=== PATIENT | female | born 1950 | race Caucasian/White ===

== ENCOUNTER 2020-10-14 13:23 | Inpatient (IN) ==
[2020-10-14] MEDS ORDERED: MORPHINE 4 MG/1 ML VIAL IV ONE (15:12)
[2020-10-14] MEDS ORDERED: ONDANSETRON 4 MG/2 ML VIAL IV STA (15:12)
[2020-10-14 15:22] LABS: Basophils % 0.5 % (0.0-0.8); Eosinophils # 0.2 10*3/uL (0.0-0.87); Hematocrit 41.9 VOL% (35.7-47.0); Hemoglobin 13.4 GM/DL (12.0-16.0); Immature Granulocytes % 0.2 %; Immature Granulocytes Absolute 0.02 #; Lymphocytes # 1.3 10*3/uL (1.4-4.0); Lymphocytes % 15.2 % (21.3-54.2); Mean Corpuscular Volume 91.9 FL (87-102); Monocytes % 9.6 % (1.7-12.7); Neutrophils % 72.5 % (38.7-73.9); Platelet Count 201 T/CUMM (130-400); Red Blood Count 4.56 MC/CUMM (3.8-5.5); Red Cell Distribution Width 13.5 % (9.3-17.3); White Blood Count 8.6 T/CUMM (4-12)
[2020-10-14 15:31] LABS: Calcium 9.2 MG/DL (8.5-10.1); Osmolality,Calculated 275.7 MOS/KG (273-304); Potassium 3.5 MMOL/L (3.5-5.1)
[2020-10-14] MEDS ORDERED: DEXTROSE 50% 25 GM/50 ML VIAL IV PRN (15:39)
[2020-10-14] MEDS ORDERED: GLUCAGON 1 MG VIAL IM PRN (15:39)
[2020-10-14] MEDS ORDERED: ONDANSETRON 4 MG/2 ML VIAL IV PRN (15:39)
[2020-10-14] MEDS ORDERED: HYDROmorphone 2 MG/1 ML VIAL IV PRN (15:41)
[2020-10-14] MEDS ORDERED: POTASSIUM CHLORIDE 20 MEQ TABLET PO ONE (16:18)
[2020-10-14] MEDS: DEXTROSE 5% NACL 0.45% 1,000 ML IV SCH (16:43)
[2020-10-14] MEDS ORDERED: INFLUENZA VIRUS VACCINE 0.5 ML SYRINGE IM ONE (16:58)
[2020-10-14] MEDS ORDERED: PNEUMOCOCCAL VACCINE (13 VALENT) 0.5 ML SYRINGE IM ONE (16:58)
[2020-10-14] MEDS: DOCUSATE SODIUM 100 MG CAPSULE PO SCH (21:08)
[2020-10-15 05:59] LABS: Basophils % 0.6 % (0.0-0.8); Eosinophils # 0.3 10*3/uL (0.0-0.87); Eosinophils % 4.4 % (0.00-10.9); Hematocrit 38.6 VOL% (35.7-47.0); Hemoglobin 12.4 GM/DL (12.0-16.0); Immature Granulocytes % 0.5 %; Immature Granulocytes Absolute 0.03 #; Lymphocytes # 1.2 10*3/uL (1.4-4.0); Lymphocytes % 19.4 % (21.3-54.2); Mean Corpuscular HGB Conc 32.1 GM/DL (32-36); Mean Corpuscular Volume 91.9 FL (87-102); Monocytes % 9.9 % (1.7-12.7); Neutrophils % 65.2 % (38.7-73.9); Platelet Count 184 T/CUMM (130-400); Red Cell Distribution Width 13.6 % (9.3-17.3); White Blood Count 6.2 T/CUMM (4-12)
[2020-10-15 06:18] LABS: Calcium 8.5 MG/DL (8.5-10.1); Osmolality,Calculated 280.4 MOS/KG (273-304); Potassium 3.6 MMOL/L (3.5-5.1)
[2020-10-15] MEDS: DEXTROSE 5% NACL 0.45% 1,000 ML IV SCH ×2 (06:31→19:13)
[2020-10-15] MEDS: BUDESONIDE 3 MG CAPSULE PO SCH (09:00)
[2020-10-15] MEDS: PANTOPRAZOLE 40 MG TABLET PO SCH (09:00)
[2020-10-15] MEDS: DOCUSATE SODIUM 100 MG CAPSULE PO SCH ×2 (09:00→21:42)
[2020-10-15] MEDS ORDERED: SODIUM CHLORIDE 0.9% 100 ML IV ONE (16:10)
[2020-10-15] MEDS ORDERED: propofoL 200 MG/20 ML VIAL IV ONE (16:10)
[2020-10-15] MEDS ORDERED: LIDOCAINE 2% 5 ML VIAL ONE (16:10)
[2020-10-15] MEDS ORDERED: BUPIVACAINE SPINAL 0.75% 2 ML AMP SPINAL ONE (16:10)
[2020-10-15] MEDS ORDERED: fentaNYL 100 MCG/2 ML VIAL ONE (16:10)
[2020-10-15] MEDS ORDERED: MIDAZOLAM 2 MG/2 ML VIAL ONE (16:10)
[2020-10-15] MEDS ORDERED: KETAMINE 500 MG/10 ML VIAL ONE (16:14)
[2020-10-15] MEDS ORDERED: MEPERIDINE 25 MG/1 ML VIAL IV PRN (16:45)
[2020-10-15] MEDS ORDERED: PROMETHAZINE INJ 25 MG in SODIUM CHLORIDE 0.9% 50 ML IV PRN (16:45)
[2020-10-15] MEDS ORDERED: diphenhydrAMINE 50 MG/1 ML VIAL IV PRN (16:45)
[2020-10-15] MEDS ORDERED: HYDROmorphone 2 MG/1 ML VIAL IV PRN (16:45)
[2020-10-15] MEDS ORDERED: ONDANSETRON 4 MG/2 ML VIAL IV PRN (16:45)
[2020-10-15] MEDS ORDERED: DEXMEDETOMIDINE 200 MCG/2 ML VIAL ONE (18:42)
[2020-10-15] MEDS ORDERED: CLINDAMYCIN INJ 50 ML IV ONE (18:59)
[2020-10-15] MEDS ORDERED: LACTATED RINGERS 1,000 ML IV ONE (20:11)
[2020-10-15] MEDS ORDERED: PHENYLEPHRINE 1 MG/10 ML SYRINGE IV ONE (20:17)
[2020-10-15] MEDS ORDERED: ROPIVACAINE 0.5% 30 ML VIAL ONE (20:56)
[2020-10-15] MEDS ORDERED: DEXAMETHASONE 4 MG/1 ML VIAL ONE (20:56)
[2020-10-15] MEDS: CLINDAMYCIN INJ 900 MG in PREMIX 1 EACH IV SCH (21:42)
[2020-10-16] MEDS: CLINDAMYCIN INJ 900 MG in PREMIX 1 EACH IV SCH ×3 (04:47→20:32)
[2020-10-16 05:51] LABS: Basophils % 0.3 % (0.0-0.8); Eosinophils % 0.3 % (0.00-10.9); Hematocrit 38.8 VOL% (35.7-47.0); Hemoglobin 12.6 GM/DL (12.0-16.0); Immature Granulocytes % 0.4 %; Immature Granulocytes Absolute 0.03 #; Lymphocytes # 0.6 10*3/uL (1.4-4.0); Lymphocytes % 8.7 % (21.3-54.2); Mean Corpuscular HGB Conc 32.5 GM/DL (32-36); Mean Corpuscular Volume 92.4 FL (87-102); Monocytes % 6.3 % (1.7-12.7); Platelet Count 202 T/CUMM (130-400); Red Cell Distribution Width 13.2 % (9.3-17.3)
[2020-10-16 06:04] LABS: Calcium 8.5 MG/DL (8.5-10.1); Osmolality,Calculated 275.8 MOS/KG (273-304); Potassium 3.9 MMOL/L (3.5-5.1)
[2020-10-16] MEDS: BUDESONIDE 3 MG CAPSULE PO SCH (09:27)
[2020-10-16] MEDS: PANTOPRAZOLE 40 MG TABLET PO SCH (09:27)
[2020-10-16] MEDS: DOCUSATE SODIUM 100 MG CAPSULE PO SCH ×2 (09:27→20:32)
[2020-10-16] MEDS: ENOXAPARIN 40 MG/0.4 ML SYRINGE SUBCUT SCH (09:27)
[2020-10-16] MEDS: DEXTROSE 5% NACL 0.45% 1,000 ML IV SCH ×2 (12:57→20:49)
[2020-10-16] MEDS ORDERED: TUBERCULIN SKIN TEST 0.1 ML SYRINGE INTRADERM ONE (14:27)
[2020-10-17] MEDS: CLINDAMYCIN INJ 900 MG in PREMIX 1 EACH IV SCH ×2 (04:43→12:17)
[2020-10-17 05:16] LABS: Basophils % 0.4 % (0.0-0.8); Eosinophils # 0.2 10*3/uL (0.0-0.87); Eosinophils % 3.1 % (0.00-10.9); Hematocrit 35.3 VOL% (35.7-47.0); Hemoglobin 11.5 GM/DL (12.0-16.0); Immature Granulocytes % 0.4 %; Immature Granulocytes Absolute 0.03 #; Lymphocytes # 1.7 10*3/uL (1.4-4.0); Lymphocytes % 25.3 % (21.3-54.2); Mean Corpuscular HGB Conc 32.6 GM/DL (32-36); Mean Platelet Volume 9.9 FL (9.6-12.0); Monocytes % 11.3 % (1.7-12.7); Neutrophils % 59.5 % (38.7-73.9); Platelet Count 206 T/CUMM (130-400); Red Blood Count 3.88 MC/CUMM (3.8-5.5); Red Cell Distribution Width 13.4 % (9.3-17.3); White Blood Count 6.8 T/CUMM (4-12)
[2020-10-17 05:41] LABS: Calcium 8.4 MG/DL (8.5-10.1); Osmolality,Calculated 277.4 MOS/KG (273-304)
[2020-10-17] MEDS: BUDESONIDE 3 MG CAPSULE PO SCH (09:10)
[2020-10-17] MEDS: PANTOPRAZOLE 40 MG TABLET PO SCH (09:10)
[2020-10-17] MEDS: ENOXAPARIN 40 MG/0.4 ML SYRINGE SUBCUT SCH (09:10)
[2020-10-17] MEDS: DOCUSATE SODIUM 100 MG CAPSULE PO SCH (09:10)
[2020-10-17] MEDS ORDERED: POTASSIUM CHLORIDE 20 MEQ TABLET PO ONE (10:30)
[2020-10-17 11:45] VITALS: BP 109/65
== END 2020-10-17 12:33 | DRG 482 ==
LOC: N.ED 13:23 → N.EDINP 15:38 → N.3E 16:09
PROVIDERS: ADMIT Hospitalist; ATTEND Hospitalist

== ENCOUNTER 2022-09-05 22:04 | Inpatient (IN) ==
[2022-09-05] MEDS ORDERED: fentaNYL 100 MCG/2 ML VIAL IV STA (22:31)
[2022-09-05] MEDS ORDERED: ONDANSETRON 4 MG/2 ML VIAL IV STA (22:31)
[2022-09-05 23:06] LABS: Basophils # 0.1 10*3/uL (0.0-0.2); Basophils % 0.9 % (0.0-0.8); Eosinophils # 0.2 10*3/uL (0.0-0.87); Eosinophils % 1.9 % (0.00-10.9); Hematocrit 38.4 VOL% (35.7-47.0); Hemoglobin 12.1 GM/DL (12.0-16.0); Immature Granulocytes % 0.5 %; Immature Granulocytes Absolute 0.04 #; Lymphocytes # 1.8 10*3/uL (1.4-4.0); Lymphocytes % 22.4 % (21.3-54.2); Mean Corpuscular HGB Conc 31.5 GM/DL (32-36); Mean Platelet Volume 10.1 FL (9.6-12.0); Monocytes # 0.6 10*3/uL (0.11-0.8); Monocytes % 7.4 % (1.7-12.7); Neutrophils % 66.9 % (38.7-73.9); Platelet Count 229 T/CUMM (130-400); Red Blood Count 4.13 MC/CUMM (3.8-5.5); Red Cell Distribution Width 13.5 % (9.3-17.3); White Blood Count 7.85 T/CUMM (4-12)
[2022-09-05] MEDS ORDERED: HYDROmorphone 1 MG/1 ML SYRINGE IV STA (23:07)
[2022-09-05 23:10] LABS: Calcium 8.9 MG/DL (8.5-10.1); Osmolality,Calculated 284.1 MOS/KG (273-304); Potassium 3.7 MMOL/L (3.5-5.1)
[2022-09-05 23:19] LABS: INR 0.9; PT Patient Result 10.5 SECS (10.1-12.1); Partial Thromboplastin Time 20.9 SECS (23.7-32.9)
[2022-09-06] MEDS ORDERED: HYDROmorphone 1 MG/1 ML SYRINGE IV STA (01:22)
[2022-09-06] MEDS ORDERED: hydrALAZINE 20 MG/1 ML VIAL IV PRN (01:56)
[2022-09-06] MEDS ORDERED: GLUCAGON 1 MG VIAL IM PRN (01:56)
[2022-09-06] MEDS ORDERED: ONDANSETRON 4 MG/2 ML VIAL IV PRN (01:56)
[2022-09-06] MEDS ORDERED: DEXTROSE 10% 250 ML BAG IV PRN (02:03)
[2022-09-06] MEDS: SODIUM CHLORIDE 0.9% 1,000 ML IV SCH ×2 (04:00→16:36)
[2022-09-06] MEDS: MORPHINE 2 MG/1 ML SYRINGE IV PRN ×2 (04:01→19:38)
[2022-09-06] MEDS ORDERED: HYDROmorphone 1 MG/1 ML SYRINGE IV ONE (05:51)
[2022-09-06 06:06] LABS: Basophils % 0.3 % (0.0-0.8); Eosinophils # 0.1 10*3/uL (0.0-0.87); Eosinophils % 0.6 % (0.00-10.9); Hematocrit 36.1 VOL% (35.7-47.0); Hemoglobin 11.6 GM/DL (12.0-16.0); Immature Granulocytes % 0.3 %; Immature Granulocytes Absolute 0.02 #; Lymphocytes % 12.9 % (21.3-54.2); Mean Corpuscular HGB Conc 32.1 GM/DL (32-36); Mean Corpuscular Volume 91.6 FL (87-102); Mean Platelet Volume 10.2 FL (9.6-12.0); Monocytes # 0.7 10*3/uL (0.11-0.8); Monocytes % 8.5 % (1.7-12.7); Neutrophils % 77.4 % (38.7-73.9); Platelet Count 196 T/CUMM (130-400); Red Blood Count 3.94 MC/CUMM (3.8-5.5); Red Cell Distribution Width 13.5 % (9.3-17.3); White Blood Count 7.85 T/CUMM (4-12)
[2022-09-06 06:28] LABS: Albumin 3.2 G/DL (3.4-5.0); Bilirubin,Total 0.5 MG/DL (0.20-1.00); Calcium 8.6 MG/DL (8.5-10.1); Osmolality,Calculated 282.1 MOS/KG (273-304); Potassium 3.6 MMOL/L (3.5-5.1); Total Protein 6.5 G/DL (6.4-8.2)
[2022-09-06] MEDS: INSULIN LISPRO 100 UNIT/ML SUBCUT SCH ×4 (07:58→20:19)
[2022-09-06] MEDS ORDERED: FAMOTIDINE 20 MG TABLET PO ONE (08:16)
[2022-09-06] MEDS ORDERED: DEXAMETHASONE 4 MG/1 ML VIAL ONE ×2 (08:48→09:30)
[2022-09-06] MEDS ORDERED: ONDANSETRON 4 MG/2 ML VIAL ONE (08:48)
[2022-09-06] MEDS ORDERED: LIDOCAINE 2% 5 ML VIAL ONE ×2 (08:48→09:23)
[2022-09-06] MEDS ORDERED: propofoL 200 MG/20 ML VIAL IV ONE (08:48)
[2022-09-06] MEDS ORDERED: fentaNYL 100 MCG/2 ML VIAL ONE (08:49)
[2022-09-06] MEDS: PANTOPRAZOLE 40 MG TABLET PO SCH (09:00)
[2022-09-06] MEDS: ENOXAPARIN 40 MG/0.4 ML SYRINGE SUBCUT SCH (09:13)
[2022-09-06] MEDS ORDERED: MIDAZOLAM 2 MG/2 ML VIAL ONE (09:25)
[2022-09-06] MEDS ORDERED: LIDOCAINE 1% 5 ML VIAL ONE (09:30)
[2022-09-06] MEDS ORDERED: ROPIVACAINE 0.5% 30 ML VIAL ONE (09:30)
[2022-09-06] MEDS ORDERED: ePHEDrine 50 MG/ML VIAL ONE (10:00)
[2022-09-06] MEDS ORDERED: GLYCOPYRROLATE 0.4 MG/2 ML VIAL ONE (10:03)
[2022-09-06] MEDS ORDERED: PHENYLEPHRINE 1 MG/10 ML SYRINGE IV ONE (10:03)
[2022-09-06] MEDS ORDERED: NEOSTIGMINE 10 MG/10 ML VIAL ONE (10:04)
[2022-09-06] MEDS ORDERED: SODIUM CHLORIDE 0.9% 1,000 ML IV ONE (10:23)
[2022-09-06] MEDS ORDERED: SEVOFLURANE 1 UNIT/15 MINUTE INH ONE ×2 (10:38→10:57)
[2022-09-06] MEDS: CLINDAMYCIN INJ 600 MG/50 ML PREMIX IV SCH ×2 (10:50→18:42)
[2022-09-06 15:02] LABS: Basophils % 0.4 % (0.0-0.8); Eosinophils % 0.4 % (0.00-10.9); Hematocrit 39.3 VOL% (35.7-47.0); Hemoglobin 12.7 GM/DL (12.0-16.0); Immature Granulocytes % 0.4 %; Immature Granulocytes Absolute 0.03 #; Lymphocytes # 0.5 10*3/uL (1.4-4.0); Lymphocytes % 5.9 % (21.3-54.2); Mean Corpuscular HGB Conc 32.3 GM/DL (32-36); Mean Corpuscular Volume 90.3 FL (87-102); Mean Platelet Volume 9.3 FL (9.6-12.0); Monocytes # 0.4 10*3/uL (0.11-0.8); Monocytes % 4.3 % (1.7-12.7); Neutrophils % 88.6 % (38.7-73.9); Platelet Count 186 T/CUMM (130-400); Red Blood Count 4.35 MC/CUMM (3.8-5.5); Red Cell Distribution Width 13.5 % (9.3-17.3)
[2022-09-06] MEDS ORDERED: DEXTROSE 50% 25 GM/50 ML VIAL IV PRN (15:29)
[2022-09-07] MEDS: MORPHINE 2 MG/1 ML SYRINGE IV PRN (01:10)
[2022-09-07] MEDS: CLINDAMYCIN INJ 600 MG/50 ML PREMIX IV SCH ×3 (01:23→17:45)
[2022-09-07 06:56] LABS: Calcium 8.7 MG/DL (8.5-10.1); Osmolality,Calculated 272.8 MOS/KG (273-304); Potassium 3.9 MMOL/L (3.5-5.1)
[2022-09-07] MEDS: ENOXAPARIN 40 MG/0.4 ML SYRINGE SUBCUT SCH (09:47)
[2022-09-07] MEDS: PANTOPRAZOLE 40 MG TABLET PO SCH (09:47)
[2022-09-07] MEDS: INSULIN LISPRO 100 UNIT/ML SUBCUT SCH ×4 (09:47→21:24)
[2022-09-08] MEDS: CLINDAMYCIN INJ 600 MG/50 ML PREMIX IV SCH ×3 (02:24→17:10)
[2022-09-08 06:00] LABS: Basophils # 0.1 10*3/uL (0.0-0.2); Basophils % 0.7 % (0.0-0.8); Eosinophils # 0.4 10*3/uL (0.0-0.87); Hematocrit 34.1 VOL% (35.7-47.0); Immature Granulocytes % 0.4 %; Immature Granulocytes Absolute 0.03 #; Lymphocytes # 1.4 10*3/uL (1.4-4.0); Lymphocytes % 18.5 % (21.3-54.2); Mean Corpuscular HGB Conc 32.3 GM/DL (32-36); Mean Corpuscular Volume 91.2 FL (87-102); Mean Platelet Volume 9.9 FL (9.6-12.0); Monocytes # 0.8 10*3/uL (0.11-0.8); Monocytes % 10.6 % (1.7-12.7); Neutrophils % 64.8 % (38.7-73.9); Platelet Count 179 T/CUMM (130-400); Red Blood Count 3.74 MC/CUMM (3.8-5.5); Red Cell Distribution Width 13.9 % (9.3-17.3); White Blood Count 7.37 T/CUMM (4-12)
[2022-09-08 06:21] LABS: Calcium 8.3 MG/DL (8.5-10.1); Osmolality,Calculated 279.4 MOS/KG (273-304); Potassium 3.7 MMOL/L (3.5-5.1)
[2022-09-08] MEDS: INSULIN LISPRO 100 UNIT/ML SUBCUT SCH ×4 (07:56→23:04)
[2022-09-08] MEDS: ENOXAPARIN 40 MG/0.4 ML SYRINGE SUBCUT SCH (09:22)
[2022-09-08] MEDS: PANTOPRAZOLE 40 MG TABLET PO SCH (09:22)
[2022-09-08] MEDS: ACETAMINOPHEN 325 MG TABLET PO PRN (12:56)
[2022-09-08] MEDS ORDERED: LEVOFLOXACIN INJ 500 MG/100 ML PREMIX IV SCH (15:00)
[2022-09-08] MEDS: APIXABAN 2.5 MG TABLET PO SCH (20:56)
[2022-09-09] MEDS: CLINDAMYCIN INJ 600 MG/50 ML PREMIX IV SCH ×2 (01:45→09:05)
[2022-09-09] MEDS: ACETAMINOPHEN 325 MG TABLET PO PRN (02:50)
[2022-09-09 08:35] VITALS: BP 125/82
[2022-09-09] MEDS: PANTOPRAZOLE 40 MG TABLET PO SCH (09:01)
[2022-09-09] MEDS: APIXABAN 2.5 MG TABLET PO SCH (09:01)
[2022-09-09] MEDS: INSULIN LISPRO 100 UNIT/ML SUBCUT SCH (09:02)
[2022-09-09] MEDS ORDERED: LEVOFLOXACIN 500 MG TABLET PO SCH (11:00)
== END 2022-09-09 11:32 | DRG 480 ==
LOC: N.ED 22:04 → N.EDINP 09-06 01:52 → SUATTDRO 09-06 01:52 → N.2E 09-06 03:15
PROVIDERS: ADMIT Emergency Medicine; ATTEND Internal Medicine